=== PATIENT | male | born 1975 | race Caucasian/White ===

== ENCOUNTER → 2021-06-23 | Day surgery (SDC) | payer BC, OTHER ==
[~2021-06-23] MED LIST: BUSPIRONE HCL5 MG PO; ESCITALOPRAM OXA5 MG PO; METFORMIN HCL500 MG PO
== END | disposition home or self-care (01) ==
LOC: OR 07:30
DX: D12.5 Benign neoplasm of sigmoid colon (principal); D12.8 Benign neoplasm of rectum; K57.32 Diverticulitis of large intestine without perforation or abscess without bleeding; N40.0 Benign prostatic hyperplasia without lower urinary tract symptoms; Z90.49 Acquired absence of other specified parts of digestive tract; Z20.822 Contact with and (suspected) exposure to COVID-19
CPT/HCPCS: J2001; J2704; J7030